=== PATIENT | female | born 1970 | race Caucasian/White ===

== ENCOUNTER → 2022-06-01 | Outpatient (CLI) | payer MEDICARE, OTHER ==
[2022-06-01 16:43] VITALS: BP 138/81; PULSE 76; TEMP 98.2; BMI 64.5
--- NOTE | 2022-06-01 17:14 | P.HPBAR ---
Bariatric H&P - History & Physicial H&P Date: 06/01/22 History & Physicial: Visit/CC: new patient Patient initial contact: Initial weight: Initial weight in pounds: Height: 5 ft 11 in Initial BMI: Last weight: Current weight: 209.696 kg Current weight in pounds: 462.30 Current BMI: 64.5 [place] body weight (based on NIH guidelines): 70.307 kg Excess body weight loss: The patient is a 51 year-old F who presents for Bariatric Assessment. Patient presents for sending consultation. Highest weight of 520 pounds. With medical supervised weight loss is primary care doctor he got down to 452 pounds. Today he comes a weight gain of 10 pounds to 40-62 pounds. Reports having bila teral knee replacement surgery 8 years ago. He also reports prior attempt for weight loss surgery in this [place] however discontinue due to the of her friend who had a gastric bypass. Patient comes in with a walker. He does report occasional gastroesophageal reflux disease. No prior abdominal surgeries. He has personal history of positive Colocort needs a colonoscopy. Recommend upper and lower endoscopy. Patient has just moved to the area has pre-existing cardiopulmonary disease. Referral to a film loader for shortness sleep apnea, CPAP machine and chronic obstructive pulmonary disease. Also referral to counseling services director is he reports having cardioversion. At present he does not have a counseling services director. Recommend psych assessment. At least 3 months of medical supervised weight loss pending. This is currently second month. All questions addressed. Patient is seeking a sleeve gastrectomy. Past Medical History Past Medical History: Atrial Fibrillation, Diabetes Mellitus, Hyperlipidemia, Hypertension, Osteoarthritis (OA) History of Any Multi-Drug Resistant Organisms: None Reported Past Surgical History: Cardiac Ablation, Joint Replacement Additional Past Surgical History / Comment(s): bilateral knee replacement, left shoulder surgery, left elbow surgery Past Anesthesia/Blood Transfusion Reactions: No Reported Reaction Past Psychological History: Anxiety Smoking Status: Vaper Past Alcohol Use History: Rare Past Drug Use History: None Reported Surgical - Exam Vital Signs Temp Pulse BP 98.2 F 76 138/81 06/01/22 16:38 06/01/22 16:38 06/01/22 16:38 Bariatric Checklist Checklist: Plan: Checklist: EGD: 1. Hiatal hernia: 2. H. Pylori: HgbA1c: Vitamin D: Smoking: Primary care physician referral: Dr. Jung Psychiatry clearance: Cardiology clearance: Sleep study: Diet journal: VTE risk score: VTE risk level: Rehab needs at discharge:
== END ==
LOC: BARWHC3 16:09
PROVIDERS: ATTEND Surgery Plastic and Reconstructive Surgery
DX: E66.01 Morbid (severe) obesity due to excess calories (principal); Z53.9 Procedure and treatment not carried out, unspecified reason
CPT/HCPCS: 99203

== ENCOUNTER → 2022-08-22 | Outpatient (CLI) | payer MEDICARE, OTHER ==
[2022-08-22 10:51] VITALS: BMI 66.3
== END ==
LOC: BARWHC3 08:45
PROVIDERS: ATTEND Surgery Plastic and Reconstructive Surgery
DX: E66.01 Morbid (severe) obesity due to excess calories (principal); Z71.3 Dietary counseling and surveillance; Z68.44 Body mass index [BMI] 60.0-69.9, adult
CPT/HCPCS: 97804

== ENCOUNTER 2022-09-19 06:43 | Day surgery (SDC) | payer MEDICARE, OTHER ==
[2022-09-14 14:57] VITALS: BMI 59.7
[2022-09-19] MEDS ORDERED: LACTATED RINGERS 1,000 ML IV ONE (07:37)
[2022-09-19 07:39] LABS: Glucose,Whole Blood 127 mg/dL (70-110)
[2022-09-19 07:41] VITALS: TEMP 97.3
--- NOTE | 2022-09-19 07:41 | P.GSHP ---
History of Present Illness H&P Date: 09/19/22 CHIEF COMPLAINT: GERD and colon screen HISTORY OF PRESENT ILLNESS: The patient is a 52-year-old male who presents with gastroesophageal reflux disease and need for colon screen. Upper and lower endoscopy were offered for further evaluation and management. PAST MEDICAL HISTORY: Please see list. PAST SURGICAL HISTORY: Please see list. MEDICATIONS: Please see list. ALLERGIES: Please see list. SOCIAL HISTORY: No illicit drug use FAMILY HISTORY: No reports of Crohn disease or ulcerative colitis. REVIEW OF ORGAN SYSTEMS: CONSTITUTIONAL: No reports of fevers or chills. GI: Denies any blood in stools or constipation. PHYSICAL EXAM: VITAL SIGNS: Stable GENERAL: Well-developed pleasant in no acute distress. HEENT: No scleral icterus. Extraocular movements grossly intact. Moist buccal mucosa. NECK: Supple without lymphadenopathy. CHEST: Unlabored respirations. Equal bilateral excursions. CARDIOVASCULAR: Regular rate and rhythm. Distal 2+ pulses. ABDOMEN: Soft, nondistended. MUSCULOSKELETAL: No clubbing, cyanosis, or edema. ASSESSMENT: 1. Gastroesophageal reflux disease 2. Colon screen. PLAN: 1. Recommend proceeding with an upper and lower endoscopy Past Medical History Past Medical History: Atrial Fibrillation, Diabetes Mellitus, GERD/Reflux, Hyperlipidemia, Hypertension, Osteoarthritis (OA), Skin Disorder, Sleep Apnea/CPAP/BIPAP Additional Past Medical History / Comment(s): Patient has a wound on Right heel for 3-4 years that won't heal. History of Any Multi-Drug Resistant Organisms: None Reported Past Surgical History: Cardiac Ablation, Joint Replacement, Tonsillectomy Additional Past Surgical History / Comment(s): bilateral knee replacement, left shoulder surgery, left elbow surgery Past Anesthesia/Blood Transfusion Reactions: No Reported Reaction Past Psychological History: Anxiety, Depression Smoking Status: Current every day smoker, Vaper Past Alcohol Use History: None Reported Past Drug Use History: None Reported Medications and Allergies Home Medications Medication Instructions Recorded Confirmed Type ALPRAZolam [Xanax] 1 mg PO BID PRN 06/01/22 09/14/22 History Atorvastatin [Lipitor] 40 mg PO DAILY 06/01/22 09/14/22 History Baclofen [Lioresal] 20 mg PO HS 06/01/22 09/14/22 History Enalapril [Vasotec] 20 mg PO DAILY 06/01/22 09/14/22 History Fenofibrate 160 mg PO DAILY 06/01/22 09/14/22 History Gabapentin 600 mg PO BID 06/01/22 09/14/22 History Rivaroxaban [Xarelto] 20 mg PO HS 06/01/22 09/14/22 History Sotalol HCl [Betapace] 120 mg PO BID 06/01/22 09/14/22 History Tirzepatide [Mounjaro] 12.5 mg SQ WEEKLY 06/01/22 09/14/22 History metFORMIN HCL [Glucophage] 1,000 mg PO BID 06/01/22 09/14/22 History Hydrocodone/Acetaminophen 1 mg PO BID 09/02/22 09/14/22 History [Hydrocodone/Acetaminophen 7.5-325] Glimepiride [Amaryl] 2 mg PO AC-BRKFST 09/14/22 09/14/22 History Insulin Glargine,Hum.rec.anlog 40 units SQ BID 09/14/22 09/14/22 History [Touadiel Solostar] Insulin Lispro [humaLOG Kwikpen] 0 unit SQ TID-W/MEALS 09/14/22 09/14/22 History Magnesium 400 mg PO DAILY 09/14/22 09/14/22 History Omeprazole 20 mg PO DAILY 09/14/22 09/14/22 History Sildenafil Citrate [Viagra] 25 mg PO DIRECTED PRN 09/14/22 09/14/22 History Turmeric Root Extract [Turmeric 500 mg PO DAILY 09/14/22 09/14/22 History Curcumin] Vitamin D3/Vitamin K2 (Mk4) 1 each PO DAILY 09/14/22 09/14/22 History [Vitamin K2 Plus D3 Tablet] Allergies Allergy/AdvReac Type Severity Reaction Status Date / Time morphine AdvReac ANXIOUS Verified 09/14/22 14:45 AND STRANGE FEELING Results - Labs Abnormal Lab Results - Last 24 Hours (Table) 09/19/22 Range/Units 07:35 POC Glucose (mg/dL) 127 H (70-110) mg/dL
[2022-09-19] MEDS ORDERED: LIDOCAINE 2% INJ 20 MG/ML (2 ML VIAL) ONE (07:42)
[2022-09-19] MEDS ORDERED: PROPOFOL 10 MG/ML 20 ML VIAL IV ONE (07:42)
--- NOTE | 2022-09-19 07:52 | P.PCN ---
Date of Procedure: 09/19/22 Description of Procedure: PREOPERATIVE DIAGNOSIS: Gastroesophageal reflux disease. Morbid obesity. POSTOPERATIVE DIAGNOSIS: Gastroesophageal reflux disease with erosive esophagitis Morbid obesity. Gastritis. Duodenal adenoma OPERATION: Esophagogastroduodenoscopy with biopsies along antrum and duodenum SURGEON: Jazz Briscoe MD ANESTHESIA: MAC. INDICATIONS: The patient is a 52-year-old male who presents with reflux disease. Benefits and risks of the procedure were described. Informed consent was obtained. DESCRIPTION: The patient was brought into the endoscopy suite and laid in the left lateral decubitus position. An Olympus gastroscope was passed along the posterior oropharynx down to the distal esophagus where the squamocolumnar junction was encountered at 4 cm from the incisors. The stomach was entered and no bile reflux was found. Additional findings are listed below. Biopsies with cold forceps were obtained of the antrum. The first through third portion of the duodenum was examined. Retroflexion of the scope confirmed Hill grade 2 lower esophageal valve. The squamocolumnar junction demonstrated LA grade B erosive esophagitis. The stomach was desufflated. The patient tolerated the procedure well. FINDINGS: Squamocolumnar junction 45 cm from the incisors. Diaphragmatic hiatus at 45 cm. Hill grade 2 lower esophageal valve. LA grade B erosive esophagitis. 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
--- NOTE | 2022-09-19 08:18 | P.PCN ---
Date of Procedure: 09/19/22 Description of Procedure: PREOPERATIVE DIAGNOSIS: Positive Cologuard Colonoscopy screening POSTOPERATIVE DIAGNOSIS: Tubular adenoma cecum Tubular adenoma ascending colon Tubular adenoma sigmoid colon OPERATION: Colonoscopy to the ileocecal valve and appendiceal orifice, cecum Colonoscopy with hot snare polypectomy SURGEON: Jazz Briscoe MD. ANESTHESIA: MAC. INDICATIONS: The patient is an 52-year-old male who presents with positive stool antigen test for adenoma. Benefits and risks were described and informed consent was obtained. DESCRIPTION OF PROCEDURE: The patient had undergone Sutab prep. The patient had been brought into the operating room and laid in the left lateral decubitus position. After adequate intravenous sedation, the rectum was examined with 2% lidocaine jelly. The prostate was unremarkable. No external hemorrhoids were encountered. The rectal tone was within normal limits. No lesions were palpated in the rectal vault. An Olympus colonoscope was advanced until the cecum, ileocecal valve and appendiceal orifice were clearly viewed. The prep was good. No sigmoid diverticulosis was encountered. Colonic polyps were found and removed. No evidence of focal colitis was found. Retroflexion of the scope demonstrated grade 1 internal hemorrhoids without active bleeding or inflammation. The colon was desufflated. The patient had tolerated the procedure well. Withdrawal time was over 6 minutes. FINDINGS: Aronchick preparation quality scale 2 (1-5) Internal hemorrhoids, grade 1 No external hemorrhoids Arteriovenous malformations, 1 mm, ascending colon No sigmoid diverticulosis Removal of 5 polyps: - Snare polypectomy 20 cm from the anal verge, 5 mm tubulovillous adenoma, sigmoid - Snare polypectomy 30 cm from the anal verge 2, 6 to 8 mm flat villous adenoma, sigmoid - Snare polypectomy ascending colon, 4 mm flat villous adenoma - Snare polypectomy cecum, 5 mm flat villous adenoma No focal colitis. RECOMMENDATIONS: Given severity of tubular adenomas, recommend repeat colonoscopy 3 years, 2025 Plan - Discharge Summary Discharge Rx Participant: No New Discharge Prescriptions: Continue ALPRAZolam [Xanax] 1 mg PO BID PRN PRN Reason: Anxiety Fenofibrate 160 mg PO DAILY Baclofen [Lioresal] 20 mg PO HS Atorvastatin [Lipitor] 40 mg PO DAILY metFORMIN HCL [Glucophage] 1,000 mg PO BID Sotalol HCl [Betapace] 120 mg PO BID Enalapril [Vasotec] 20 mg PO DAILY Tirzepatide [Mounjaro] 12.5 mg SQ WEEKLY Hydrocodone/Acetaminophen [Hydrocodone/Acetaminophen 7.5-325] 1 mg PO BID Insulin Glargine,Hum.rec.anlog [Tounancyo Solostar] 40 units SQ BID Glimepiride [Amaryl] 2 mg PO AC-BRKFST Turmeric Root Extract [Turmeric Curcumin] 500 mg PO DAILY Insulin Lispro [humaLOG Kwikpen] 0 unit SQ TID-W/MEALS Rivaroxaban [Xarelto] 20 mg PO HS Gabapentin 600 mg PO BID Sildenafil Citrate [Viagra] 25 mg PO DIRECTED PRN PRN Reason: ED Magnesium 400 mg PO DAILY Vitamin D3/Vitamin K2 (Mk4) [Vitamin K2 Plus D3 Tablet] 1 each PO DAILY Omeprazole 20 mg PO DAILY Discharge Medication List ALPRAZolam [Xanax] 1 mg PO BID PRN 06/01/22 [History] Atorvastatin [Lipitor] 40 mg PO DAILY 06/01/22 [History] Baclofen [Lioresal] 20 mg PO HS 06/01/22 [History] Enalapril [Vasotec] 20 mg PO DAILY 06/01/22 [History] Fenofibrate 160 mg PO DAILY 06/01/22 [History] Gabapentin 600 mg PO BID 06/01/22 [History] Rivaroxaban [Xarelto] 20 mg PO HS 06/01/22 [History] Sotalol HCl [Betapace] 120 mg PO BID 06/01/22 [History] Tirzepatide [Mounjaro] 12.5 mg SQ WEEKLY 06/01/22 [History] metFORMIN HCL [Glucophage] 1,000 mg PO BID 06/01/22 [History] Hydrocodone/Acetaminophen [Hydrocodone/Acetaminophen 7.5-325] 1 mg PO BID 09/02/22 [History] Glimepiride [Amaryl] 2 mg PO AC-BRKFST 09/14/22 [History] Insulin Glargine,Hum.rec.anlog [Toujeo Solostar] 40 units SQ BID 09/14/22 [History] Insulin Lispro [humaLOG Kwikpen] 0 unit SQ TID-W/MEALS 09/14/22 [History] Magnesium 400 mg PO DAILY 09/14/22 [History] Omeprazole 20 mg PO DAILY 09/14/22 [History] Sildenafil Citrate [Viagra] 25 mg PO DIRECTED PRN 09/14/22 [History] Turmeric Root Extract [Turmeric Curcumin] 500 mg PO DAILY 09/14/22 [History] Vitamin D3/Vitamin K2 (Mk4) [Vitamin K2 Plus D3 Tablet] 1 each PO DAILY 09/14/22 [History] [facility]Ref[facility] [facility] [place] [place] [place] Patient Instructions/Handouts: Colorectal Polyps (GEN) Activity/Diet/Wound Care/Special Instructions: Repeat colonoscopy 3 years, 2025 Discharge Disposition: HOME SELF-CARE
[2022-09-19 08:43] VITALS: BP 116/65; PULSE 80; RESP 20
== END 2022-09-19 09:08 | disposition home or self-care (01) ==
LOC: ORWHC2ENDO 06:43
PROVIDERS: ATTEND Surgery Plastic and Reconstructive Surgery
DX: Z12.11 Encounter for screening for malignant neoplasm of colon (principal); K29.50 Unspecified chronic gastritis without bleeding; D12.0 Benign neoplasm of cecum; D12.2 Benign neoplasm of ascending colon; K64.1 Second degree hemorrhoids; K21.00 Gastro-esophageal reflux disease with esophagitis, without bleeding; K31.7 Polyp of stomach and duodenum; E66.01 Morbid (severe) obesity due to excess calories; D13.2 Benign neoplasm of duodenum; I48.91 Unspecified atrial fibrillation; E11.9 Type 2 diabetes mellitus without complications; K21.9 Gastro-esophageal reflux disease without esophagitis; E78.5 Hyperlipidemia, unspecified; I10 Essential (primary) hypertension; F41.8 Other specified anxiety disorders; M19.90 Unspecified osteoarthritis, unspecified site; G47.33 Obstructive sleep apnea (adult) (pediatric); Z99.89 Dependence on other enabling machines and devices; Z90.89 Acquired absence of other organs; Z98.890 Other specified postprocedural states; F17.290 Nicotine dependence, other tobacco product, uncomplicated; Z79.84 Long term (current) use of oral hypoglycemic drugs; Z79.899 Other long term (current) drug therapy; Z79.4 Long term (current) use of insulin; Z88.5 Allergy status to narcotic agent
CPT/HCPCS: 88305; 45385; 43239; J2704; J2001

== ENCOUNTER → 2022-10-12 | Outpatient (CLI) | payer MEDICARE, OTHER ==
[2022-10-12 14:18] VITALS: BP 131/78; PULSE 83; RESP 13; TEMP 98; BMI 65.2
--- NOTE | 2022-10-12 15:24 | P.BASOAP ---
Subjective Progress Note Date: 10/12/22 He is pending cardiac clearance. He needs full blood work. Path reviewed. Needs food and exercise journal. Needs EKG. Objective - Vital Signs Vital signs: Vital Signs Temp 98 F 10/12/22 14:08 Pulse 83 10/12/22 14:08 Resp 13 10/12/22 14:08 BP 131/78 10/12/22 14:08 Pulse Ox FiO2 Intake & Output 10/11/22 10/12/22 10/12/22 18:59 06:59 18:59 Weight 212.372 kg Assessment/Plan Plan: Date: 10/12/22 Initial Weight: Initial BMI: Current Weight: 212.372 kg Current BMI: 65.2 Type of Surgery: Total Volume in Band: Previous Volume: Volume Removed: Volume Added: Band Size:
[2022-10-13 02:31] LABS: % Iron Saturation 10.81 (15.00-50.00); ALT 29 U/L (10-49); AST 24 U/L (14-35); Albumin/Globulin Ratio 1.25 Ratio (1.60-3.17); Alkaline Phosphatase 77 U/L (41-126); BUN/Creat Ratio 14.75 Ratio (12.00-20.00); Blood Urea Nitrogen 11.8 mg/dL (9.0-27.0); Carbon Dioxide 23.7 mmol/L (21.6-31.8); Chloride 100 mmol/L (96-109); Chol/HDL Ratio 4.81 Ratio; Globulin 3.2 d/dL (1.6-3.3); Glucose 191 mg/dL (70-110); Iron 48 UG/DL (65-175); LDL Cholesterol,Calculated 67.9 mg/dL (0.0-131.0); Magnesium 1.6 mg/dL (1.5-2.4); Phosphorus 3.4 mg/dL (2.4-5.1); Potassium 4.4 mmol/L (3.5-5.5); Sodium 137 mmol/L (135-145); Total Bilirubin 0.3 mg/dL (0.3-1.2); Total Iron Binding Capacity 444 UG/DL (228-460); Total Protein 7.2 d/dL (6.2-8.2)
[2022-10-13 02:52] LABS: Prealbumin 18.4 mg/dL (18.0-42.0)
[2022-10-13 03:53] LABS: Ferritin 62.5 ng/mL (22.0-322.0)
[2022-10-13 11:48] LABS: HCT 43.2 % (39.6-50.0); HGB 13.8 d/dL (12.0-15.0); MCH 29.9 pg (27.0-32.0); MCHC 31.9 d/dL (32.0-37.0); MCV 93.5 FL (80.0-97.0); Mean Platelet Volume 10.7 FL (9.5-12.2); NRBC Per 100 WBC 0.04 X 10*3/uL (0.00-0.01); Platelet Count 290 X 10*3/uL (140-440); RBC 4.62 X 10*6/uL (4.40-5.60); RDW 14.8 % (11.5-14.5); WBC 11.72 X 10*3/uL (4.50-10.00)
[2022-10-14 06:32] LABS: Vit B1(Thiamine) 70 ug/L (38-122)
[2022-10-14 08:05] LABS: Vitamin A 46 ug/dL (38-106)
== END ==
LOC: BARWHC3 14:00
PROVIDERS: ATTEND Surgery Plastic and Reconstructive Surgery
DX: E66.01 Morbid (severe) obesity due to excess calories (principal); Z68.44 Body mass index [BMI] 60.0-69.9, adult; E89.1 Postprocedural hypoinsulinemia; D50.8 Other iron deficiency anemias; D50.9 Iron deficiency anemia, unspecified; E44.0 Moderate protein-calorie malnutrition; E44.1 Mild protein-calorie malnutrition; E45 Retarded development following protein-calorie malnutrition; E46 Unspecified protein-calorie malnutrition; E55.9 Vitamin D deficiency, unspecified; N19 Unspecified kidney failure; T56.894A Toxic effect of other metals, undetermined, initial encounter; Z88.5 Allergy status to narcotic agent; Z79.4 Long term (current) use of insulin; Z79.84 Long term (current) use of oral hypoglycemic drugs
CPT/HCPCS: 84255; 84134; 84425; 80061; 80053; 82607; 82728; 82525; 82746; 83540; 83550; 83735; 84100; 84443; 84590; 84630; 85027; 85610; 85730; 82306; 83970; 83036; G0463; 99211

== ENCOUNTER → 2022-12-14 | Outpatient (CLI) | payer MEDICARE, OTHER ==
[2022-12-14 09:15] VITALS: BP 129/79; PULSE 86; TEMP 98.2; BMI 63.1
--- NOTE | 2022-12-14 09:40 | P.BASOAP ---
Subjective Progress Note Date: 12/14/22 Patient has completed cardiac risk assessment. He is on blood thinner. Additionally, his loss 15 pounds for his presurgical weight loss. With gastrectomy and sent reviewed. WelChol high-protein diet reemphasized. Emphasis on walking to prevent blood clots described including adequate hydration reviewed. Anticipated inpatient hospitalization I agrees described. All questions addressed. Objective - Vital Signs Vital signs: Vital Signs Temp 98.2 F 12/14/22 09:11 Pulse 86 12/14/22 09:11 Resp BP 129/79 12/14/22 09:11 Pulse Ox FiO2 Intake & Output 12/13/22 12/14/22 12/14/22 18:59 06:59 18:59 Weight 205.477 kg Assessment/Plan Plan: Date: 12/14/22 Initial Weight: Initial BMI: Current Weight: 205.477 kg Current BMI: 63.1 Type of Surgery: Total Volume in Band: Previous Volume: Volume Removed: Volume Added: Band Size:
== END ==
LOC: BARWHC3 08:58
PROVIDERS: ATTEND Surgery Plastic and Reconstructive Surgery
DX: Z53.9 Procedure and treatment not carried out, unspecified reason (principal)
CPT/HCPCS: 99211

== ENCOUNTER → 2022-12-14 | Outpatient (CLI) | payer MEDICARE, OTHER ==
[2022-12-14 17:11] LABS: ALT 35 U/L (10-49); AST 33 U/L (14-35); Albumin 4.3 d/dL (3.8-4.9); Albumin/Globulin Ratio 1.34 Ratio (1.60-3.17); Alkaline Phosphatase 75 U/L (41-126); BUN/Creat Ratio 13.22 Ratio (12.00-20.00); Blood Urea Nitrogen 11.9 mg/dL (9.0-27.0); Calcium 10.2 mg/dL (8.7-10.3); Carbon Dioxide 23.8 mmol/L (21.6-31.8); Chloride 102 mmol/L (96-109); Globulin 3.2 d/dL (1.6-3.3); Glucose 110 mg/dL (70-110); Potassium 4.4 mmol/L (3.5-5.5); Sodium 139 mmol/L (135-145); Total Bilirubin 0.5 mg/dL (0.3-1.2); Total Protein 7.5 d/dL (6.2-8.2)
[2022-12-14 17:14] LABS: Basophils # (A) 0.08 X 10*3/uL (0.00-0.10); Basophils % (A) 0.6 %; Eosinophils # (A) 0.26 X 10*3/uL (0.04-0.35); Eosinophils % (A) 2.1 %; HCT 44.6 % (39.6-50.0); HGB 14.5 d/dL (13.0-17.0); Lymphocytes # (A) 4.33 X 10*3/uL (0.90-5.00); Lymphocytes % (A) 34.8 %; MCH 29.4 pg (27.0-32.0); MCHC 32.5 d/dL (32.0-37.0); MCV 90.5 FL (80.0-97.0); Mean Platelet Volume 10.3 FL (9.5-12.2); Monocytes # (A) 0.95 X 10*3/uL (0.20-1.00); Monocytes % (A) 7.6 %; NRBC Per 100 WBC 0 X 10*3/uL (0.00-0.01); Neutrophils # (A) 6.81 X 10*3/uL (1.80-7.70); Neutrophils % (A) 54.7 %; Platelet Count 293 X 10*3/uL (140-440); RBC 4.93 X 10*6/uL (4.40-5.60); RDW 14.6 % (11.5-14.5); WBC 12.46 X 10*3/uL (4.50-10.00)
== END | disposition home or self-care (01) ==
LOC: LABWHC1 09:35
PROVIDERS: ATTEND Surgery Plastic and Reconstructive Surgery
DX: Z01.812 Encounter for preprocedural laboratory examination (principal)
CPT/HCPCS: 36415; 80053; 85025

== ENCOUNTER 2022-12-19 15:30 | Inpatient (IN) | payer MEDICARE, OTHER ==
--- NOTE | 2022-12-19 08:51 | P.GSHP ---
History of Present Illness H&P Date: 12/19/22 CHIEF COMPLAINT: Morbid obesity HISTORY OF PRESENT ILLNESS: Harpreet Kumar is a 52-year-old male who comes with lifelong morbid obesity. As result of morbid obesity, he has developed diabetes type 2, hypertensive heart disease, obstructive sleep apnea, hyperlipidemia, osteoarthritis of the hips and knees. He has completed medical supervised weight loss. He completed medical including cardiac assessment. He has completed psychological risk assessment. All surgical options were reviewed. He elected for sleeve gastrectomy. At height of 6 feet 2 inches, ideal body weight is 193 pounds. He comes in 467 pounds. His body mass index is 60.1. He is 274 pounds overweight. PAST MEDICAL HISTORY: 1. Morbid obesity due to excess calories 2. Body mass index of 60.1 3. Osteoarthritis of the knees. 4. Osteoarthritis of the lower back. 5. Hypertensive heart disease. 6. Gastroesophageal reflux disease 7. Hyperlipidemia 8. Obstructive sleep apnea 9. Diabetes type 2, insulin-dependent 10. Fatty liver disease 11. Chronic pain syndrome 12. Coronary artery disease 13. Atrial fibrillation PAST SURGICAL HISTORY: 1. Cardiac ablation 2. Bilateral knee replacement 3. Left shoulder surgery 4. Left elbow surgery 5. Colonoscopy 6. Upper endoscopy HOME MEDICATIONS: Home Medications Medication Instructions Recorded Confirmed ALPRAZolam [Xanax] 1 mg PO BID PRN 06/01/22 12/14/22 Atorvastatin [Lipitor] 40 mg PO DAILY 06/01/22 12/14/22 Baclofen [Lioresal] 20 mg PO BID 06/01/22 12/14/22 Enalapril [Vasotec] 20 mg PO DAILY 06/01/22 12/14/22 Fenofibrate 160 mg PO DAILY 06/01/22 12/14/22 Gabapentin 600 mg PO BID 06/01/22 12/14/22 Rivaroxaban [Xarelto] 20 mg PO HS 06/01/22 12/14/22 Sotalol HCl [Betapace] 120 mg PO BID 06/01/22 12/14/22 Tirzepatide [Mounjaro] 12.5 mg SQ WEEKLY 06/01/22 12/14/22 metFORMIN HCL [Glucophage] 1,000 mg PO BID 06/01/22 12/14/22 Hydrocodone/Acetaminophen 1 mg PO BID 09/02/22 12/14/22 [Hydrocodone/Acetaminophen 7.5-325] Glimepiride [Amaryl] 2 mg PO AC-BRKFST 09/14/22 12/14/22 Insulin Glargine,Hum.rec.anlog 40 units SQ BID 09/14/22 12/14/22 [Touadiel Greeneosteden] Insulin Lispro [humaLOG Kwikpen] 0 unit SQ TID-W/MEALS 09/14/22 12/14/22 Magnesium 400 mg PO DAILY 09/14/22 12/14/22 Omeprazole 20 mg PO DAILY 09/14/22 12/14/22 Sildenafil Citrate [Viagra] 25 mg PO DIRECTED PRN 09/14/22 12/14/22 Turmeric Root Extract [Turmeric 500 mg PO DAILY 09/14/22 12/14/22 Curcumin] Vitamin D3/Vitamin K2 (Mk4) 1 each PO DAILY 09/14/22 12/14/22 [Vitamin K2 Plus D3 Tablet] Ergocalciferol [Vitamin D2 (1250 50,000 unit PO WEEKLY 10/17/22 12/14/22 Mcg = 14702 Iu)] Multivit/Iron Sulf/Folic Acid 1 tab PO DAILY 10/17/22 12/14/22 [Multivitamin with Iron] ALLERGIES: Allergies Allergy/AdvReac Type Severity Reaction Status Date / Time morphine AdvReac ANXIOUS Verified 10/12/22 14:08 AND STRANGE FEELING SOCIAL HISTORY: Past tobacco use. FAMILY HISTORY: No family history of ulcerative colitis disease or Crohn's disease. Family history of morbid obesity. No lupus in the family. No reports of stomach or esophageal cancer. REVIEW OF ORGAN SYSTEMS: CONSTITUTIONAL: At height of 6 feet 2 inches, ideal body weight is 193 pounds. He comes in 467 pounds. His body mass index is 60.1. He is 274 pounds overweight. HEENT: Denies any active troubles with vision or hearing. ENDOCRINE: Has diabetes. Denies hypothyroidism. CARDIOVASCULAR: Past reports of palpitations or heart attacks or chest pain. Has atrial fibrillation. Has coronary artery disease. RESPIRATORY: Has daytime somnolence. GASTROINTESTINAL: Denies any bright red blood per rectum. Has gastroesophageal reflux disease. MUSCULOSKELETAL: Has lower back pain and joint pain. Has osteoarthritis of the knees. NEURO: No headaches. No seizure disorders. PSYCH: Ni depression. No suicidal ideation. RHEUMATOLOGIC: No lupus. No rheumatoid arthritis. HEMATOLOGIC: On chronic blood thinner No personal history of DVTs. SKIN: Has rash. No skin cancer. PHYSICAL EXAM: VITAL SIGNS: Height 6 foot 2 inches, weight 467 pounds. BMI 60.1 GENERAL: Well-developed in no acute distress. HEENT: No scleral icterus. Extraocular movements grossly intact. Hears conve rsational speech. No nasal drainage. NECK: Supple without lymphadenopathy. CHEST: Nonlabored respirations with equal bilateral excursions. CARDIOVASCULAR: Regular rate and regular rhythm. Distal 2+ pulses. ABDOMEN: Obese, soft, nontender, nondistended. MUSCULOSKELETAL: No clubbing, cyanosis. NEURO: No focal or lateralizing signs. Cranial nerves 2 through 12 grossly within normal limits. PSYCH: Appropriate affect. Alert and oriented to person, place and time. SKIN: Good skin turgor. Well perfused. ASSESSMENT: 1. Morbid obesity due to excess calories 2. Body mass index of 60.1 3. Osteoarthritis of the knees. 4. Osteoarthritis of the lower back. 5. Hypertensive heart disease. 6. Gastroesophageal reflux disease 7. Hyperlipidemia 8. Obstructive sleep apnea 9. Diabetes type 2, insulin-dependent 10. Fatty liver disease 11. Chronic pain syndrome 12. Coronary artery disease 13. Atrial fibrillati PLAN: 1. Bariatric options between a sleeve, band and a Jackie-en-Y gastric bypass were reviewed in detail. The patient elected for a sleeve gastrectomy. Robotic assisted approach described. 2. The [place] [facility] Data was also reviewed with benefits and risks as described. 3. An 8 page second-generation bariatric consent form was reviewed in detail including potential of bleeding, infection, leaks, adequate weight loss, nutritional deficiencies which the patient demonstrated understanding of the risks. 4. A 2 week high-protein low caloric 800 kcal diet described to address hepatomegaly. 5. Preoperative labs including complete metabolic panel and CBC with type and screen recommended. 6. DVT prophylaxis per [place] [facility]. 7. Antibiotic prophylaxis. 8. Inpatient hospitalization anticipated for more than 2 nights. 9. All questions and concerns were addressed with the patient. 10. The patient is at elevated risk for perioperative complications with sleep apnea and hypertensive heart disease. 11. Overall, patient has expressed understanding of bariatric care including postoperative diet and commitment of lifestyle. Patient should benefit from surgical intervention for correction of morbid obesity. 12. He is elevated risk due to pre-existing comorbid conditions Past Medical History Past Medical History: Atrial Fibrillation, Diabetes Mellitus, GERD/Reflux, Hyp erlipidemia, Hypertension, Osteoarthritis (OA), Skin Disorder, Sleep Apnea/CPAP/BIPAP Additional Past Medical History / Comment(s): Patient has a wound on Right heel for 3-4 years that has finally healed overl. uses cpap History of Any Multi-Drug Resistant Organisms: None Reported Past Surgical History: Cardiac Ablation, Joint Replacement, Tonsillectomy Additional Past Surgical History / Comment(s): bilateral knee replacement, left shoulder surgery, left elbow surgery Past Anesthesia/Blood Transfusion Reactions: No Reported Reaction Smoking Status: Former smoker, Vaper - Past Family History Mother Family Medical History: Cancer Additional Family Medical History / Comment(s): bladder Medications and Allergies Home Medications Medication Instructions Recorded Confirmed Type ALPRAZolam [Xanax] 1 mg PO BID PRN 06/01/22 12/14/22 History Atorvastatin [Lipitor] 40 mg PO DAILY 06/01/22 12/14/22 History Baclofen [Lioresal] 20 mg PO BID 06/01/22 12/14/22 History Enalapril [Vasotec] 20 mg PO DAILY 06/01/22 12/14/22 History Fenofibrate 160 mg PO DAILY 06/01/22 12/14/22 History Gabapentin 600 mg PO BID 06/01/22 12/14/22 History Rivaroxaban [Xarelto] 20 mg PO HS 06/01/22 12/14/22 History Sotalol HCl [Betapace] 120 mg PO BID 06/01/22 12/14/22 History Tirzepatide [Mounjaro] 12.5 mg SQ WEEKLY 06/01/22 12/14/22 History metFORMIN HCL [Glucophage] 1,000 mg PO BID 06/01/22 12/14/22 History Hydrocodone/Acetaminophen 1 mg PO BID 09/02/22 12/14/22 History [Hydrocodone/Acetaminophen 7.5-325] Glimepiride [Amaryl] 2 mg PO AC-BRKFST 09/14/22 12/14/22 History Insulin Glargine,Hum.rec.anlog 40 units SQ BID 09/14/22 12/14/22 History [Toujemisty Abernathy] Insulin Lispro [humaLOG Kwikpen] 0 unit SQ TID-W/MEALS 09/14/22 12/14/22 History Magnesium 400 mg PO DAILY 09/14/22 12/14/22 History Omeprazole 20 mg PO DAILY 09/14/22 12/14/22 History Sildenafil Citrate [Viagra] 25 mg PO DIRECTED PRN 09/14/22 12/14/22 History Turmeric Root Extract [Turmeric 500 mg PO DAILY 09/14/22 12/14/22 History Curcumin] Vitamin D3/Vitamin K2 (Mk4) 1 each PO DAILY 09/14/22 12/14/22 History [Vitamin K2 Plus D3 Tablet] Ergocalciferol [Vitamin D2 (1250 50,000 unit PO WEEKLY 10/17/22 12/14/22 History Mcg = 62692 Iu)] Multivit/Iron Sulf/Folic Acid 1 tab PO DAILY 10/17/22 12/14/22 History [Multivitamin with Iron] Allergies Allergy/AdvReac Type Severity Reaction Status Date / Time morphine AdvReac ANXIOUS Verified 10/12/22 14:08 AND STRANGE FEELING
[~2022-12-19 15:30] MED LIST: ACETAMINOPHEN TAB 500 MG TAB PO PRN; ALVIMOPAN 12 MG CAPSULE PO PRN; CHLORHEXIDINE GLUCONATE 15 ML CUP MUCOUS MEM PRN; DEXAMETHASONE SOD PHOSPHATE 4 MG/ML 1 ML VIAL IV ONE; ENOXAPARIN 40 MG/0.4 ML SYRINGE SQ PRN; HYDROmorphone 0.5 MG/0.5 ML SYRINGE IVP PRN; LIDOCAINE 1% (10MG/ML) FOR IV START INTRADERMA PRN; ONDANSETRON 4 MG/2 ML VIAL IVP ONE; ONDANSETRON 4 MG/2 ML VIAL IVP PRN; PANTOPRAZOLE 40 MG/10 ML VIAL IVP PRN; ceFAZolin 3 GM in SODIUM CHLORIDE 0.9% 100 ML IVPB PRN; droPERidol 5 MG/2 ML VIAL IVP PRN
[2022-12-19] MEDS: LACTATED RINGERS 1,000 ML IV SCH (15:56)
[2022-12-19 16:23] LABS: Glucose,Whole Blood 121 mg/dL (70-110)
[2022-12-19 16:37] LABS: Basophils # (A) 0.1 k/uL (0-0.2); Basophils % (A) 1 %; Eosinophils # (A) 0.3 k/uL (0-0.7); Eosinophils % (A) 2 %; HCT 42.8 % (39.0-53.0); HGB 14.2 gm/dL (13.0-17.5); Lymphocytes # (A) 3.7 k/uL (1.0-4.8); Lymphocytes % (A) 26 %; MCH 29.9 pg (25.0-35.0); MCHC 33.2 g/dL (31.0-37.0); Mean Platelet Volume 7.8; Monocytes % (A) 7 %; Neutrophils # (A) 8.5 k/uL (1.3-7.7); Neutrophils % (A) 62 %; Platelet Count 287 k/uL (150-450); RBC 4.75 m/uL (4.30-5.90); RDW 14.8 % (11.5-15.5); WBC 13.9 k/uL (3.8-10.6)
[2022-12-19] MEDS ORDERED: fentaNYL (PF) 50 MCG/ML 2 ML AMP ONE (17:17)
[2022-12-19] MEDS ORDERED: LIDOCAINE 2% INJ 20 MG/ML (2 ML VIAL) ONE (17:17)
[2022-12-19] MEDS ORDERED: NEOSTIGMINE 1 MG/ML 10 ML VIAL ONE (17:17)
[2022-12-19] MEDS ORDERED: SUCCINYLCHOLINE CHLORIDE 200 MG/10 ML VIAL IV ONE (17:17)
[2022-12-19] MEDS ORDERED: PROPOFOL 10 MG/ML 20 ML VIAL IV ONE (17:17)
[2022-12-19] MEDS ORDERED: ROCURONIUM 10 MG/ML (5 ML VIAL) IV ONE (17:17)
[2022-12-19] MEDS ORDERED: MIDAZOLAM 2 MG/2 ML VIAL ONE (17:17)
[2022-12-19] MEDS ORDERED: GLYCOPYRROLATE 0.2 MG/ML 2 ML VIAL ONE (17:17)
[2022-12-19] MEDS ORDERED: LIDOCAINE 1%-EPI 1:100,000 50 ML VIAL SQ ONE (17:44)
[2022-12-19] MEDS ORDERED: LACTATED RINGERS 1,000 ML IV ONE (18:29)
[2022-12-19] MEDS ORDERED: HYDROmorphone 1 MG/ML 1 ML SYRINGE IVP PRN (19:11)
[2022-12-19] MEDS ORDERED: NALOXONE 0.4 MG/ML 1 ML VIAL IV PRN (19:11)
[2022-12-19] MEDS ORDERED: diphenhydrAMINE 50 MG/ML 1 ML VIAL IVP PRN (19:11)
[2022-12-19] MEDS ORDERED: ALPRAZolam 1 MG TAB PO PRN (19:15)
[2022-12-19] MEDS ORDERED: DEXTROSE 50% SYRINGE 50 ML IVP PRN ×2 (19:21)
[2022-12-19 20:52] LABS: Glucose,Whole Blood 189 mg/dL (70-110)
[2022-12-19] MEDS: ALBUTEROL NEBULIZED 2.5 MG/3 ML INHALATION SCH (21:01)
[2022-12-19] MEDS: BACLOFEN 10 MG TAB PO SCH (21:12)
[2022-12-19] MEDS: HYDROcodone/APAP 7.5-325MG 1 EACH TAB PO SCH (21:12)
[2022-12-19] MEDS: GABAPENTIN 300 MG CAP PO SCH (21:12)
[2022-12-19] MEDS: PANTOPRAZOLE 40 MG/10 ML VIAL IV SCH (21:13)
[2022-12-19] MEDS: INSULIN ASPART (NovoLOG) 100 UNIT/ML VIAL SQ SCH (21:13)
[2022-12-19] MEDS: SOTALOL 120 MG TAB PO SCH (23:17)
[2022-12-19] MEDS: 0.9% NACL WITH KCL 20 MEQ/L 1,000 ML IV SCH (23:20)
[2022-12-20] MEDS ORDERED: ceFAZolin 3 GM in SODIUM CHLORIDE 0.9% 100 ML IVPB SCH ×2
[2022-12-20] MEDS: ACETAMINOPHEN IV (For NPO) 1,000 MG in EMPTY BAG 1 BAG IVPB SCH ×6 (00:04→22:38)
[2022-12-20] MEDS: SIMETHICONE 80 MG CHEWABLE PO SCH ×4 (01:13→17:26)
[2022-12-20 06:24] LABS: Glucose,Whole Blood 166 mg/dL (70-110)
[2022-12-20] MEDS: INSULIN ASPART (NovoLOG) 100 UNIT/ML VIAL SQ SCH ×4 (07:32→21:28)
[2022-12-20] MEDS: 0.9% NACL WITH KCL 20 MEQ/L 1,000 ML IV SCH ×4 (07:50→22:36)
[2022-12-20] MEDS: LACTATED RINGERS 1,000 ML IV SCH ×2 (07:51→22:36)
[2022-12-20] MEDS: lisinopriL 20 MG TAB PO SCH (08:37)
[2022-12-20] MEDS: PANTOPRAZOLE 40 MG/10 ML VIAL IV SCH ×2 (08:37→21:29)
[2022-12-20] MEDS: ENOXAPARIN 40 MG/0.4 ML SYRINGE SQ SCH (08:38)
[2022-12-20] MEDS: BACLOFEN 10 MG TAB PO SCH ×2 (08:38→21:40)
[2022-12-20] MEDS: GABAPENTIN 300 MG CAP PO SCH ×2 (08:38→21:42)
[2022-12-20] MEDS: SOTALOL 120 MG TAB PO SCH ×2 (08:38→22:30)
[2022-12-20] MEDS: HYDROcodone/APAP 7.5-325MG 1 EACH TAB PO SCH ×2 (08:38→21:42)
[2022-12-20 09:11] LABS: Blood Urea Nitrogen 11.4 mg/dL (9.0-27.0); Calcium 9.1 mg/dL (8.7-10.3); Carbon Dioxide 21.9 mmol/L (21.6-31.8); Chloride 101 mmol/L (96-109); Magnesium 1.7 mg/dL (1.5-2.4); Phosphorus 3.1 mg/dL (2.4-5.1); Potassium 4.3 mmol/L (3.5-5.5); Sodium 137 mmol/L (135-145)
[2022-12-20] MEDS: ALBUTEROL NEBULIZED 2.5 MG/3 ML INHALATION SCH ×4 (09:15→21:11)
[2022-12-20 09:22] LABS: HCT 41.1 % (39.6-50.0); MCH 29.2 pg (27.0-32.0); MCHC 31.6 d/dL (32.0-37.0); MCV 92.4 FL (80.0-97.0); NRBC Per 100 WBC 0 X 10*3/uL (0.00-0.01); Platelet Count 261 X 10*3/uL (140-440); RBC 4.45 X 10*6/uL (4.40-5.60); RDW 14.4 % (11.5-14.5); WBC 14.99 X 10*3/uL (4.50-10.00)
[2022-12-20 09:23] LABS: Basophils # (A) 0.03 X 10*3/uL (0.00-0.10); Basophils % (A) 0.2 %; Eosinophils # (A) 0 X 10*3/uL (0.04-0.35); Eosinophils % (A) 0 %; Lymphocytes # (A) 2.18 X 10*3/uL (0.90-5.00); Lymphocytes % (A) 14.5 %; Monocytes # (A) 0.51 X 10*3/uL (0.20-1.00); Monocytes % (A) 3.4 %; Neutrophils # (A) 12.17 X 10*3/uL (1.80-7.70); Neutrophils % (A) 81.2 %
--- NOTE | 2022-12-20 11:02 | FL ---
EXAMINATION TYPE: FL UGI DATE OF EXAM: 12/20/2022 COMPARISON: INDICATION: Patient age:Male; 52 years old; Reason for study: Post Op Bariatric Surgery; [facility]. COMPARISON: None TECHNIQUE: The procedure was explained and patient history elicited. All patient questions were ans wered prior to start of procedure. Difficult examination due to patient's inability to stand upright within the fluoroscopic machine or able to lie supine on the fluoroscopic table due to pain. The crhistiano ent ingested Isovue orally with subsequent radiographs taken. Radiographs taken: 4 FINDINGS: Limited examination due to patient's body habitus with underpenetration. Contrast passes easily throu gh the esophagus into the stomach. Post surgical changes from gastric sleeve. No evidence for obstruc tion or leak. Contrast easily passes into the proximal duodenum. IMPRESSION: Technically difficult examination due to patient condition with inability to stand upright or get on the fluoroscopic table due to size and pain. No gross evidence for leak or obstruction on the acquire d radiographs.
[2022-12-20 11:53] LABS: Glucose,Whole Blood 153 mg/dL (70-110)
[2022-12-20] MEDS ORDERED: SODIUM CHLORIDE 0.9% 2,000 ML IV ONE (12:59)
[2022-12-20 13:55] VITALS: BMI 59.5
--- NOTE | 2022-12-20 15:10 | P.CONS ---
History of Present Illness - Reason for Consult Consult date: 12/20/22 Medical management - History of Present Illness History of present illness; patient is a 52-year-old gentleman past medical history significant for diabetes mellitus, hypertension, sleep apnea, hyperlipi demia, osteoarthritis who presented to the hospital for elective sleeve gastrectomy. Patient has been following up outpatient with surgery, patient was on supervised medical weight loss program but was unable to lose enough weight. Patient was scheduled for elective sleeve gastrectomy on 12/19. Medicine team was consulted for medical management REVIEW OF SYSTEMS: CONSTITUTIONAL: No fever, no malaise, no fatigue. HEENT: No recent visual problems or hearing problems. Denied any sore throat. CARDIOVASCULAR: No chest pain, orthopnea, PND, no palpitations, no syncope. PULMONARY: No shortness of breath, no cough, no hemoptysis. GASTROINTESTINAL: No diarrhea, no nausea, no vomiting, complaining of abdominal pain NEUROLOGICAL: No headaches, no weakness, no numbness. HEMATOLOGICAL: Denies any bleeding or petechiae. GENITOURINARY: Denies any burning micturition, frequency, or urgency. MUSCULOSKELETAL/RHEUMATOLOGICAL: Denies any joint pain, swelling, or any muscle pain. ENDOCRINE: Denies any polyuria or polydipsia. The rest of the 14-point review of systems is negative. PHYSICAL EXAMINATION: GENERAL: The patient is alert and oriented x3, not in any acute distress. Well developed, well nourished. HEENT: Pupils are round and equally reacting to light. EOMI. No scleral icterus. No conjunctival pallor. Normocephalic, atraumatic. No pharyngeal erythema. No thyromegaly. CARDIOVASCULAR: S1 and S2 present. No murmurs, rubs, or gallops. PULMONARY: Chest is clear to auscultation, no wheezing or crackles. ABDOMEN: Soft, nontender, nondistended, normoactive bowel sounds. No palpable organomegaly. MUSCULOSKELETAL: No joint swelling or deformity. EXTREMITIES: No cyanosis, clubbing, or pedal edema. NEUROLOGICAL: Gross neurological examination did not reveal any focal deficits. SKIN: No rashes. Assessment and plan Morbid obesity status post sleeve gastrectomy Body mass index of 60.1 Osteoarthritis of the knees. Osteoarthritis of the lower back. Hypertensive heart disease. Gastroesophageal reflux disease Hyperlipidemia Obstructive sleep apnea Diabetes type 2, insulin-dependent Fatty liver disease Atrial fibrillation Monitor vital signs Monitor CBC Monitor CMP Continue antiemetics Continue IV fluids Continue pain management Resume home meds Labs and medication were reviewed.. Continue same treatment. Continue with symptomatic treatment. Resume home medication. Monitor labs and vitals. DVT and GI prophylaxis. Further recommendations as per clinical course of the patient Dictation was produced using [employer] dictation software. please excuse any grammatical, word or spelling errors. Past Medical History Past Medical History: Atrial Fibrillation, Diabetes Mellitus, GERD/Reflux, Hyperlipidemia, Hypertension, Osteoarthritis (OA), Skin Disorder, Sleep Apnea/CPAP/BIPAP Additional Past Medical History / Comment(s): Patient has a wound on Right heel for 3-4 years that has finally healed overl. uses cpap History of Any Multi-Drug Resistant Organisms: None Reported Past Surgical History: Cardiac Ablation, Joint Replacement, Tonsillectomy Additional Past Surgical History / Comment(s): bilateral knee replacement, left shoulder surgery, left elbow surgery Past Anesthesia/Blood Transfusion Reactions: No Reported Reaction Past Psychological History: Anxiety Smoking Status: Former smoker, Vaper Past Alcohol Use History: None Reported Past Drug Use History: None Reported - Past Family History Mother Family Medical History: Cancer Additional Family Medical History / Comment(s): bladder Medications and Allergies Home Medications Medication Instructions Recorded Confirmed Type ALPRAZolam [Xanax] 1 mg PO BID PRN 06/01/22 12/19/22 History Atorvastatin [Lipitor] 40 mg PO DAILY 06/01/22 12/19/22 History Baclofen [Lioresal] 20 mg PO BID 06/01/22 12/14/22 History Enalapril [Vasotec] 20 mg PO DAILY 06/01/22 12/19/22 History Fenofibrate 160 mg PO DAILY 06/01/22 12/19/22 History Gabapentin 600 mg PO BID 06/01/22 12/14/22 History Sotalol HCl [Betapace] 120 mg PO BID 06/01/22 12/14/22 History metFORMIN HCL [Glucophage] 1,000 mg PO BID 06/01/22 12/19/22 History Hydrocodone/Acetaminophen 1 mg PO BID 09/02/22 12/19/22 History [Hydrocodone/Acetaminophen 7.5-325] Magnesium 400 mg PO DAILY 09/14/22 12/19/22 History Sildenafil Citrate [Viagra] 25 mg PO DIRECTED PRN 09/14/22 12/19/22 History Acetaminophen Tab [Tylenol Tab] 1,000 mg PO Q6HR PRN #30 tablet 12/19/22 Rx Omeprazole [PriLOSEC] 40 mg PO DAILY #30 cap 12/19/22 Rx Ondansetron Odt [Zofran Odt] 4 mg PO Q8HR PRN #9 tab 12/19/22 Rx Simethicone 40 mg/0.6 ml Drops 40 mg PO PCHS PRN #30 ml 12/19/22 Rx [Mylicon Drops] bisacodyL [Dulcolax] 5 mg PO DAILY PRN #10 tab 12/19/22 Rx Allergies Allergy/AdvReac Type Severity Reaction Status Date / Time No Known Allergies Allergy Verified 12/19/22 15:49 Physical Exam Vitals: Vital Signs Temp Pulse Resp BP Pulse Ox FiO2 12/20/22 09:14 96 12/20/22 09:13 96 21 12/20/22 07:56 82 20 147/90 96 12/20/22 02:00 98 F 81 123/76 100 12/19/22 22:45 89 141/86 96 12/19/22 22:30 90 131/80 97 12/19/22 22:15 84 129/78 97 12/19/22 22:00 83 142/83 97 12/19/22 21:45 89 133/79 97 12/19/22 21:30 84 139/80 95 12/19/22 21:15 84 145/83 97 12/19/22 21:00 87 144/85 94 L 12/19/22 20:45 84 142/85 96 12/19/22 20:30 98.3 F 79 16 140/86 96 12/19/22 20:06 75 16 168/82 98 12/19/22 19:51 71 16 165/78 97 12/19/22 19:36 74 16 140/71 93 L 12/19/22 19:21 81 18 152/74 93 L 12/19/22 19:06 91 16 166/69 93 L 12/19/22 16:10 97.3 F L 77 16 134/60 98 Intake and Output 12/20/22 12/20/22 12/20/22 06:59 14:59 22:59 Output Total 390 Balance -390 Output: Urine 390 Other: Voiding Method Urinal # Voids 0 1 Weight 210.2 kg 210.2 kg Results CBC & Chem 7: 12/20/22 04:35 12/20/22 04:35 Labs: Abnormal Lab Results - Last 24 Hours (Table) 12/19/22 12/19/22 12/19/22 Range/Units 16:20 16:23 20:50 WBC 13.9 H (3.8-10.6) k/uL MCHC (32.0-37.0) d/dL Neutrophils # 8.5 H (1.3-7.7) k/uL Eosinophils # (0.04-0.35) X 10*3/uL Anion Gap (4.00-12.00) mmol/L POC Glucose (mg/dL) 121 H 189 H (70-110) mg/dL Hemoglobin A1c (<=6.0) % 12/20/22 12/20/22 12/20/22 Range/Units 04:35 04:35 04:35 WBC 14.99 H (3.8-10.6) k/uL MCHC 31.6 L (32.0-37.0) d/dL Neutrophils # 12.17 H (1.3-7.7) k/uL Eosinophils # 0 L (0.04-0.35) X 10*3/uL Anion Gap 14.10 H (4.00-12.00) mmol/L POC Glucose (mg/dL) (70-110) mg/dL Hemoglobin A1c 7.3 H (<=6.0) % 12/20/22 12/20/22 Range/Units 06:22 11:51 WBC (3.8-10.6) k/uL MCHC (32.0-37.0) d/dL Neutrophils # (1.3-7.7) k/uL Eosinophils # (0.04-0.35) X 10*3/uL Anion Gap (4.00-12.00) mmol/L POC Glucose (mg/dL) 166 H 153 H (70-110) mg/dL Hemoglobin A1c (<=6.0) %
[2022-12-20 17:01] LABS: Glucose,Whole Blood 125 mg/dL (70-110)
[2022-12-20] MEDS: ONDANSETRON ODT 4 MG TAB PO PRN (18:06)
[2022-12-20 20:22] VITALS: RESP 17
[2022-12-20 20:49] LABS: Glucose,Whole Blood 135 mg/dL (70-110)
[2022-12-21] MEDS: SIMETHICONE 80 MG CHEWABLE PO SCH ×4 (00:43→19:20)
[2022-12-21 06:07] LABS: Glucose,Whole Blood 139 mg/dL (70-110)
[2022-12-21] MEDS: INSULIN ASPART (NovoLOG) 100 UNIT/ML VIAL SQ SCH ×3 (06:09→19:20)
[2022-12-21] MEDS: ONDANSETRON ODT 4 MG TAB PO PRN (06:16)
[2022-12-21 07:56] VITALS: BP 129/81; PULSE 69; TEMP 97.7
[2022-12-21] MEDS: ALBUTEROL NEBULIZED 2.5 MG/3 ML INHALATION SCH ×3 (07:58→15:07)
[2022-12-21] MEDS ORDERED: bisacodyL 5 MG TABLET.DR PO PRN (08:00)
--- NOTE | 2022-12-21 08:18 | P.PN ---
Subjective Progress Note Date: 12/20/22 CHIEF COMPLAINT: Morbid obesity HISTORY OF PRESENT ILLNESS: The patient is a 52-year-old male status post sleeve gastrectomy for morbid obesity. He is tolerating ice chips popsicles. Pain tolerable. ROS: No reports of nausea and vomiting. No bowel movements. No fevers or chills. No new chest pain. No productive sputum PHYSICAL EXAM: VITAL SIGNS: Reviewed CONSTITUTIONAL: Well developed and in no acute distress. EYES: Conjuctivae without sclera icterus. Extraocular movements grossly intact. HEAD, EARS, NOSE, THROAT: Moist buccal mucosa. Head is atraumatic, normocephalic. Hears conversational speech. No nasal drainage. RESPIRATORY: Non-labored respirations and equal bilateral excursions. CARDIOVASCULAR: Palpable 2+ radial pulses. ABDOMEN: Incision is intact. MUSCULOSKELETAL: No gross deformity of the lower extremities noted. No clubbing. No cyanosis. SKIN: Good skin turgor. Well perfused. NEUROLOGIC: Cranial nerves II through XII grossly intact. No focal or lateraliz ing signs. PSYCH: Appropriate affect. Alert and oriented to person, place and time. CLINICAL LABS: Reviewed. WBC appropriately elevated, post stress response. Hemoglobin 13.0. STUDIES: Esophagram independent review demonstrates no leak or obstruction. This is my independent interpretation. ASSESSMENT: 1. Morbid obesity due to excess calories, BMI 59.5 2. Dehydration PLAN: 1. He is voiding spontaneously and tolerating diet. 2. Recommend IV fluid bolus 2 L for pre-existing dehydration 3. Discharge after IV fluid bolus 4. Bariatric diet reviewed Objective - Vital Signs Vital signs: Vital Signs Temp 97.7 F 12/21/22 07:29 Pulse 69 12/21/22 07:29 Resp 17 12/21/22 07:29 BP 129/81 12/21/22 07:29 Pulse Ox 96 12/21/22 07:29 FiO2 21 12/20/22 09:13 Intake & Output 12/20/22 12/21/22 12/21/22 18:59 06:59 18:59 Intake Total 720 Balance 720 Weight 210.2 kg Intake: Oral 720 Other: Voiding Method Urinal # Voids 3 1 - Labs CBC & Chem 7: 12/20/22 04:35 12/20/22 04:35 Labs: Abnormal Lab Results - Last 24 Hours (Table) 08/12/20/22 12/20/22 Range/Units 04:35 04:35 04:35 WBC 14.99 H (4.50-10.00) X 10*3/uL MCHC 31.6 L (32.0-37.0) d/dL Neutrophils # 12.17 H (1.80-7.70) X 10*3/uL Eosinophils # 0 L (0.04-0.35) X 10*3/uL Anion Gap 14.10 H (4.00-12.00) mmol/L POC Glucose (mg/dL) (70-110) mg/dL Hemoglobin A1c 7.3 H (<=6.0) % 12/20/22 12/20/22 12/20/22 Range/Units 11:51 17:00 20:47 WBC (4.50-10.00) X 10*3/uL MCHC (32.0-37.0) d/dL Neutrophils # (1.80-7.70) X 10*3/uL Eosinophils # (0.04-0.35) X 10*3/uL Anion Gap (4.00-12.00) mmol/L POC Glucose (mg/dL) 153 H 125 H 135 H (70-110) mg/dL Hemoglobin A1c (<=6.0) % 12/21/22 Range/Units 06:05 WBC (4.50-10.00) X 10*3/uL MCHC (32.0-37.0) d/dL Neutrophils # (1.80-7.70) X 10*3/uL Eosinophils # (0.04-0.35) X 10*3/uL Anion Gap (4.00-12.00) mmol/L POC Glucose (mg/dL) 139 H (70-110) mg/dL Hemoglobin A1c (<=6.0) %
[2022-12-21] MEDS: HYDROcodone/APAP 7.5-325MG 1 EACH TAB PO SCH (08:19)
[2022-12-21] MEDS: GABAPENTIN 300 MG CAP PO SCH (08:19)
[2022-12-21] MEDS: BACLOFEN 10 MG TAB PO SCH (08:19)
[2022-12-21] MEDS: lisinopriL 20 MG TAB PO SCH (08:19)
[2022-12-21] MEDS: SOTALOL 120 MG TAB PO SCH (08:19)
[2022-12-21] MEDS: PANTOPRAZOLE 40 MG/10 ML VIAL IV SCH (08:19)
[2022-12-21] MEDS: ENOXAPARIN 40 MG/0.4 ML SYRINGE SQ SCH (08:19)
[2022-12-21 11:35] LABS: Glucose,Whole Blood 148 mg/dL (70-110)
[2022-12-21 12:08] LABS: Basophils % (A) 0 %; Eosinophils # (A) 0.1 k/uL (0-0.7); Eosinophils % (A) 1 %; HCT 40.3 % (39.0-53.0); HGB 13.4 gm/dL (13.0-17.5); Lymphocytes # (A) 3.2 k/uL (1.0-4.8); Lymphocytes % (A) 24 %; MCH 30.3 pg (25.0-35.0); MCHC 33.4 g/dL (31.0-37.0); MCV 90.7 fL (80.0-100.0); Mean Platelet Volume 7.8; Monocytes # (A) 0.9 k/uL (0-1.0); Monocytes % (A) 7 %; Neutrophils # (A) 8.8 k/uL (1.3-7.7); Neutrophils % (A) 66 %; Platelet Count 213 k/uL (150-450); RBC 4.44 m/uL (4.30-5.90); WBC 13.3 k/uL (3.8-10.6)
[2022-12-21] MEDS: ACETAMINOPHEN IV (For NPO) 1,000 MG in EMPTY BAG 1 BAG IVPB SCH ×2 (12:31→15:49)
[2022-12-21 12:38] LABS: ALT 26 U/L (4-49); AST 28 U/L (17-59); African American GFR (CKD) >90 (>60 ml/min/1.73 sqM); Albumin 3.7 g/dL (3.5-5.0); Albumin/Globulin Ratio 1.2; Alkaline Phosphatase 57 U/L (38-126); Anion Gap 8 mmol/L; Blood Urea Nitrogen 8 mg/dL (9-20); Calcium 8.9 mg/dL (8.4-10.2); Carbon Dioxide 23 mmol/L (22-30); Chloride 105 mmol/L (98-107); Globulin 3.1 g/dL; Glucose 143 mg/dL (74-99); Non-African American GFR(CKD) >90 (>60 ml/min/1.73 sqM); Potassium 4.1 mmol/L (3.5-5.1); Sodium 136 mmol/L (137-145); Total Bilirubin 0.6 mg/dL (0.2-1.3); Total Protein 6.8 g/dL (6.3-8.2)
--- NOTE | 2022-12-21 13:37 | P.PN ---
Subjective Progress Note Date: 12/21/22 patient is a 52-year-old gentleman past medical history significant for diabetes mellitus, hypertension, sleep apnea, hyperlipidemia, osteoarthritis who presented to the hospital for elective sleeve gastrectomy. Patient has been following up outpatient with surgery, patient was on supervised medical weight loss program but was unable to lose enough weight. Patient was scheduled for elective sleeve gastrectomy on 12/19. Medicine team was consulted for medical management 816. Patient seen and examined. States he feels better compared to yesterday. Tolerating diet REVIEW OF SYSTEMS: CONSTITUTIONAL: No fever, no malaise,. CARDIOVASCULAR: No chest pain, no palpitations, no syncope. PULMONARY: No shortness of breath, no cough, GASTROINTESTINAL: No diarrhea, no nausea, no vomiting, no abdominal pain. NEUROLOGICAL: No headaches, no weakness, PHYSICAL EXAMINATION: GENERAL: The patient is alert and oriented x3, not in any acute distress. Well developed, well nourished. HEENT: Pupils are round and equally reacting to light. EOMI. No scleral icterus. No conjunctival pallor. Normocephalic, atraumatic. No pharyngeal erythema. No thyromegaly. CARDIOVASCULAR: S1 and S2 present. No murmurs, rubs, or gallops. PULMONARY: Chest is clear to auscultation, no wheezing or crackles. ABDOMEN: Soft, nontender, nondistended, laparoscopic surgical incision seen MUSCULOSKELETAL: No joint swelling or deformity. EXTREMITIES: No cyanosis, clubbing, or pedal edema. NEUROLOGICAL: Gross neurological examination did not reveal any focal deficits. SKIN: No rashes. Assessment and plan Morbid obesity status post sleeve gastrectomy Body mass index of 60.1 Osteoarthritis of the knees. Osteoarthritis of the lower back. Hypertensive heart disease. Gastroesophageal reflux disease Hyperlipidemia Obstructive sleep apnea Diabetes type 2, insulin-dependent Fatty liver disease Atrial fibrillation Monitor vital signs Monitor CBC Monitor CMP Continue pain management per surgery Advance diet per surgery Continue symptomatic treatment Labs and medication were reviewed.. Continue same treatment. Continue with symptomatic treatment. Resume home medication. Monitor labs and vitals. DVT and GI prophylaxis. Further recommendations as per clinical course of the patient Dictation was produced using [employer] dictation software. please excuse any grammatical, word or spelling errors. Objective - Vital Signs Vital signs: Vital Signs Temp 97.7 F 12/21/22 07:29 Pulse 69 12/21/22 07:29 Resp 17 12/21/22 07:29 BP 129/81 12/21/22 07:29 Pulse Ox 96 12/21/22 07:29 FiO2 21 12/20/22 09:13 Intake & Output 12/20/22 12/21/22 12/21/22 18:59 06:59 18:59 Intake Total 720 Balance 720 Weight 210.2 kg Intake: Oral 720 Other: Voiding Method Urinal # Voids 3 1 - Labs CBC & Chem 7: 12/21/22 11:45 12/21/22 11:45 Labs: Abnormal Lab Results - Last 24 Hours (Table) 12/20/22 12/20/22 12/21/22 Range/Units 17:00 20:47 06:05 WBC (3.8-10.6) k/uL Neutrophils # (1.3-7.7) k/uL Sodium (137-145) mmol/L BUN (9-20) mg/dL Glucose (74-99) mg/dL POC Glucose (mg/dL) 125 H 135 H 139 H (70-110) mg/dL 12/21/22 12/21/22 12/21/22 Range/Units 11:33 11:45 11:45 WBC 13.3 H (3.8-10.6) k/uL Neutrophils # 8.8 H (1.3-7.7) k/uL Sodium 136 L (137-145) mmol/L BUN 8 L (9-20) mg/dL Glucose 143 H (74-99) mg/dL POC Glucose (mg/dL) 148 H (70-110) mg/dL
[2022-12-21] MEDS: 0.9% NACL WITH KCL 20 MEQ/L 1,000 ML IV SCH (15:49)
[2022-12-21 17:21] LABS: Glucose,Whole Blood 125 mg/dL (70-110)
--- NOTE | 2023-01-16 21:29 | P.OP ---
Date of Procedure: 12/19/22 Description of Procedure: SURGEON: SHAQUILLE KHAN MD PREOPERATIVE DIAGNOSES: 1. Morbid obesity due to excess calories 2. Body mass index of 66.3 3. Diabetes type 2, [id number] 4. Hypertensive heart disease 5. Hyperlipidemia 6. Chronic pain syndrome 7. Generalized anxiety disorder 8. Diabetic neuropathy 9. Osteoarthritis lower back 10. Osteoarthritis bilateral knees 11. Obstructive sleep apnea 12. Atrial fibrillation 13. Chronic anticoagulation POSTOPERATIVE DIAGNOSES: 1. Morbid obesity due to excess calories 2. Body mass index of 66.3 3. Diabetes type 2, [id number] 4. Hypertensive heart disease 5. Hyperlipidemia 6. Chronic pain syndrome 7. Generalized anxiety disorder 8. Diabetic neuropathy 9. Osteoarthritis lower back 10. Osteoarthritis bilateral knees 11. Obstructive sleep apnea 12. Atrial fibrillation 13. Chronic anticoagulation 14. Fatty liver disease with hepatomegaly OPERATION: 1. Robotic assisted daVinci Xi laparoscopic sleeve gastrectomy with 40-Georgian bougie, multiport. 2. Intraoperative esophagogastroduodenoscopy. ANESTHESIA: Gen. local anesthetic ESTIMATED BLOOD LOSS: 5 mL SPECIMENS REMOVED: Sleeve gastrectomy COMPLICATIONS: None. FINDINGS: 1. Negative intraoperative esophagogastrojejunoscopy leak test. 2. No large hiatus hernia. 3. Total of 8 staplers used including 60 mm black and green obot david used to create the gastric sleeve. 4. Sleeve gastrectomy 39 x 6 cm INDICATIONS: Harpreet Kumar is a 52-year-old male who comes with morbid obesity. He has completed bariatric risk assessment including dietary surveillance and counseling, medical risk assessment and psychological assessment. At height of 5 feet 11 inches, ideal body weight is 178 pounds. His highest weight is 474 pounds, BMI 66.3. Today, he comes in weighing 462 pounds. All surgical options for morbid obesity had been described using the [place] bariatric surgery collaborative comorbidity resolution including complication risk score. A second-generation bariatric consent form was described in detail including the possibility of protein malnutrition, leaks, gastric stricture, venous thrombosis, gastroesophageal reflux disease, need for further surgery for which he demonstrated understanding. Benefits and risks of the procedure were described at length. Informed consent was obtained. DESCRIPTION: The patient was brought into the operating room theater. Preoperatively he had received Lovenox subcutaneously for DVT prophylaxis. Additionally he had Peridex oral solution as an oral decontaminant. After general induction, the abdomen was prepped and draped in standard sterile fashion. An Ioban draping was placed along the abdomen. No hensley catheter was placed. A robotic da Grace Xi system was prepped and primed. At 15 cm from the xiphoid, proposed port sites were marked with indelible marker along the anterior axillary line bilaterally, mid axillary line bilaterally with each ports were marked 10 to 15 cm from each other. The life enrichment assistant port was marked along the left lateral abdominal wall. The robotic stapler port was marked for the right midclavicular line. A 5 mm 0 degrees laparoscopic trocar entry was performed along the left upper quadrant. The abdomen was insufflated to 15 mmHg pressure he tolerated well. Diagnostic laparoscopy demonstrated no injury to bowel, viscera, or mesentery. The liver surface was remarkable for fatty liver disease. No injury had occurred to the small bowel or viscera. Along the hiatus no recurrent hiatal hernia was found. A 8 mm port was placed along the right upper abdominal wall after exchanging the 5 mm port. A separate 8 mm port was placed along the left lateral abdominal wall. Please note that the ports were placed at least 20 cm away from the target anatomy. Care was taken to check each robotic arms were safely away from j carlos ion with the bed or the patient. At the epigastrium, a medium sized Gege liver retractor was placed under direct visualization with the Iron Business Controller placed under the right shoulder of the patient. Next, 12-mm robot stapler port was placed along the right upper quadrant. The camera 8-mm port was maintained along the epigastrium. The patient was repositioned in reverse Trendelenburg position at 21-degrees after lowering the bed. The robot was docked along the left side of the patient. Using a grasper for arm 4, a veseel sealer for arm 3, including grasper for arm 1, the robotic system was docked and primed as described. Instruments were interchanged by the life enrichment assistant for stapler loads. The camera was placed at 30-degrees down. I had sat at the console. The pylorus was identified and 6 cm proximally along the greater curvature of the stomach, the short gastrics were mobilized upwards to the angle of His using a vessel sealer. Hemostasis was excellent during this portion of the procedure. Next, the upper pole of the stomach was adherent to the left jose, which was gently dissected free using atraumatic grasper. The nursing citrix engineer placed a 40-Georgian blunted tip bougie into the stomach. Robotic stapler black and green loads 60 mm x 8 were used to create the sleeve. Initial firing was across the antrum of the stomach towards the angle of His. The staple line was completely hemostatic and linear without corkscrewing. Hemostasis was excellent. The space from the angularis incisura of the sleeve was approximately 4 cm. I then went to the head of the bed to perform the intraoperative esophagogastroduodenoscopy leak test. The upper pole of the stomach was bathed using normal saline solution. The scope was withdrawn with careful inspection along the staple line for which no leaks were found along the entire length. Additionally, the sleeve was completely hemostatic without any encroachment along the angularis incisura. Its topology was a soft "J". No stricture was encountered upon placement of the scope. The GI tract was desufflated. The patient tolerated this portion of the procedure well. The scope was completely withdrawn. The robot was undocked. I then rescrubbed into case, whereby the irrigation fluid was aspirated from the abdominal cavity. Tisseel fibrin sealant was placed along the staple length. Once dried the Gege liver retractor was removed. Attention was now brought to removal of the specimen. The distal end of the sleeve gastrectomy specimen was brought out through the 12 mm port at the left upper quadrant. The specimen was gently removed en total, corresponding to 39 cm x 6 cm sleeve gastrectomy specimen. No contamination had occurred during this process. All instruments and pneumoperitoneum including irrigation fluid was removed from the abdominal cavity. The 12 mm port site was irrigated with warm normal saline solution and diluted hydron peroxide. The 12-mm port site was reapproximated using 0 Vicryl and Harish-Zeenat of the left upper quadrant. The final incisions were closed using subcuticular interrupted suture of 4-0 Monocryl. Dermabond was applied to the skin once the skin had been cleansed. OptiFoam dressing was placed along the stomach extraction site. At the end of the procedure, needle, sponge, and instrument count was verified correct by the crown and bridge dental lab technician. The patient was taken to the postanesthesia care unit in stable condition. He had tolerated the procedure well. Intraoperative films and findings were reviewed with the patient's family.
--- NOTE | 2023-01-16 21:33 | P.DS ---
Providers Date of admission: 12/19/22 15:36 Expected date of discharge: 12/21/22 Attending physician: Jazz Briscoe Consults: 12/19/22 19:22 Consult Physician Routine Consulting Provider: Kory Salcido Consult Reason/Comments: Medical management Do you want consulting provider notified?: Yes Primary care physician: Randal Arzola Hospital Course: POSTOPERATIVE DIAGNOSES: 1. Morbid obesity due to excess calories 2. Body mass index of 66.3 3. Diabetes type 2, [id number] 4. Hypertensive heart disease 5. Hyperlipidemia 6. Chronic pain syndrome 7. Generalized anxiety disorder 8. Diabetic neuropathy 9. Osteoarthritis lower back 10. Osteoarthritis bilateral knees 11. Obstructive sleep apnea 12. Atrial fibrillation 13. Chronic anticoagulation 14. Fatty liver disease with hepatomegaly 15. Dehydration CHIEF COMPLAINT: Morbid obesity HISTORY OF PRESENT ILLNESS: The patient is a 52-year-old male status post sleeve gastrectomy for morbid obesity. He is tolerating liquids. He overnight due to transient abdominal pain. He feels well today. ROS: No reports of nausea and vomiting. No bowel movements. No fevers or chills. No new chest pain. No productive sputum PHYSICAL EXAM: VITAL SIGNS: Reviewed CONSTITUTIONAL: Well developed and in no acute distress. EYES: Conjuctivae without sclera icterus. Extraocular movements grossly intact. HEAD, EARS, NOSE, THROAT: Moist buccal mucosa. Head is atraumatic, normocephalic. Hears conversational speech. No nasal drainage. RESPIRATORY: Non-labored respirations and equal bilateral excursions. CARDIOVASCULAR: Palpable 2+ radial pulses. ABDOMEN: Incision is intact. MUSCULOSKELETAL: No gross deformity of the lower extremities noted. No clubbing. No cyanosis. SKIN: Good skin turgor. Well perfused. NEUROLOGIC: Cranial nerves II through XII grossly intact. No focal or lateralizing signs. PSYCH: Appropriate affect. Alert and oriented to person, place and time. CLINICAL LABS: Reviewed. WBC trending down 14.9-13.3 ASSESSMENT: 1. Morbid obesity due to excess calories, BMI 59.5 2. Dehydration PLAN: 1. Dietary guidelines post bariatric reviewed 2. Medicine reconciliation performed 3. Stable for discharge for follow-up bariatric Center 48-72 hours Procedures: OPERATION: 1. Robotic assisted daVinci Xi laparoscopic sleeve gastrectomy with 40-Congolese bougie, multiport. 2. Intraoperative esophagogastroduodenoscopy. ANESTHESIA: Gen. local anesthetic ESTIMATED BLOOD LOSS: 5 mL SPECIMENS REMOVED: Sleeve gastrectomy COMPLICATIONS: None. FINDINGS: 1. Negative intraoperative esophagogastrojejunoscopy leak test. 2. No large hiatus hernia. 3. Total of 8 staplers used including 60 mm black and green obot david used t o create the gastric sleeve. 4. Sleeve gastrectomy 39 x 6 cm Patient Condition at Discharge: Stable Plan - Discharge Summary Discharge Rx Participant: No New Discharge Prescriptions: New bisacodyL [Dulcolax] 5 mg PO DAILY PRN #10 tab PRN Reason: Constipation Acetaminophen Tab [Tylenol Tab] 1,000 mg PO Q6HR PRN #30 tablet PRN Reason: Pain Ondansetron Odt [Zofran Odt] 4 mg PO Q8HR PRN #9 tab PRN Reason: Nausea Simethicone 40 mg/0.6 ml Drops [Mylicon Drops] 40 mg PO PCHS PRN #30 ml PRN Reason: Gas Omeprazole [PriLOSEC] 40 mg PO DAILY #30 cap Continue ALPRAZolam [Xanax] 1 mg PO BID PRN PRN Reason: Anxiety Fenofibrate 160 mg PO DAILY Baclofen [Lioresal] 20 mg PO BID Atorvastatin [Lipitor] 40 mg PO DAILY metFORMIN HCL [Glucophage] 1,000 mg PO BID Sotalol HCl [Betapace] 120 mg PO BID Enalapril [Vasotec] 20 mg PO DAILY Hydrocodone/Acetaminophen [Hydrocodone/Acetaminophen 7.5-325] 1 mg PO BID Gabapentin 600 mg PO BID Sildenafil Citrate [Viagra] 25 mg PO DIRECTED PRN PRN Reason: ED Magnesium 400 mg PO DAILY Discontinued Tirzepatide [Mounjaro] 12.5 mg SQ WEEKLY Insulin Glargine,Hum.rec.anlog [Toujeo Solostar] 40 units SQ BID Glimepiride [Amaryl] 2 mg PO AC-BRKFST Turmeric Root Extract [Turmeric Curcumin] 500 mg PO DAILY Insulin Lispro [humaLOG Kwikpen] 0 unit SQ TID-W/MEALS Ergocalciferol [Vitamin D2 (1250 Mcg = 49257 Iu)] 50,000 unit PO WEEKLY Multivit/Iron Sulf/Folic Acid [Multivitamin with Iron] 1 tab PO DAILY Rivaroxaban [Xarelto] 20 mg PO HS Vitamin D3/Vitamin K2 (Mk4) [Vitamin K2 Plus D3 Tablet] 1 each PO DAILY Omeprazole 20 mg PO DAILY Discharge Medication List ALPRAZolam [Xanax] 1 mg PO BID PRN 06/01/22 [History] Atorvastatin [Lipitor] 40 mg PO DAILY 06/01/22 [History] Baclofen [Lioresal] 20 mg PO BID 06/01/22 [History] Enalapril [Vasotec] 20 mg PO DAILY 06/01/22 [History] Fenofibrate 160 mg PO DAILY 06/01/22 [History] Gabapentin 600 mg PO BID 06/01/22 [History] Sotalol HCl [Betapace] 120 mg PO BID 06/01/22 [History] metFORMIN HCL [Glucophage] 1,000 mg PO BID 06/01/22 [History] Hydrocodone/Acetaminophen [Hydrocodone/Acetaminophen 7.5-325] 1 mg PO BID 09/02/22 [History] Magnesium 400 mg PO DAILY 09/14/22 [History] Sildenafil Citrate [Viagra] 25 mg PO DIRECTED PRN 09/14/22 [History] Acetaminophen Tab [Tylenol Tab] 1,000 mg PO Q6HR PRN #30 tablet 12/19/22 [Rx] Omeprazole [PriLOSEC] 40 mg PO DAILY #30 cap 12/19/22 [Rx] Ondansetron Odt [Zofran Odt] 4 mg PO Q8HR PRN #9 tab 12/19/22 [Rx] Simethicone 40 mg/0.6 ml Drops [Mylicon Drops] 40 mg PO PCHS PRN #30 ml 12/19/22 [Rx] bisacodyL [Dulcolax] 5 mg PO DAILY PRN #10 tab 12/19/22 [Rx] Follow up [facility]ment(s[facility]Ref[place] [facility] [place] [place] [facility] [place]23[facility]22 9:00 am Patient Instructions/Handouts: Nutrition after Bariatric Surgery (DC), Laparoscopic Sleeve Gastrectomy (DC) Activity/Diet/Wound Care/Special Instructions: DO NOT START BLOOD THINNERS UNTIL CLEARED BY SURGEON Liquid diet only for 2 weeks until Jan 02 May Shower. No soaking in bath tubs 2 weeks until Jan 02 Continue to use incentive spirometry to prevent pneumonias. Please continue to ambulate at home to prevent blood clots in legs. Please notify your surgeon if you develop nausea and vomiting including new onset of abdominal pain. No lifting over 4 pounds in 4 weeks, Jan 19 Drink 64 oz of fluid daily. Start protein shakes on . Notify bariatric center for temp over 101.0, increased pain, drainage from incisions. No straws or carbonated beverages. Liquid diet only. Sugar content should be less than 6 g to avoid dumping syndrome. Take MOM for constipation. CRUSH, OPEN, OR CUT TABLETS LARGER THAN A SIZE OF A TIC TAC Discharge Disposition: HOME SELF-CARE
== END 2022-12-21 18:30 | disposition home or self-care (01) | DRG 621 ==
LOC: EDSTATUS 15:30 → 2ORMAIN 15:36 → 4SSUR 19:48
PROVIDERS: ADMIT Surgery Plastic and Reconstructive Surgery; ATTEND Surgery Plastic and Reconstructive Surgery
PROC: 0DJ08ZZ Inspection of Upper Intestinal Tract, Via Natural or Artificial Opening Endoscopic (ICD-10-PCS; principal; 2022-12-19 16:15)
PROC: 0DB64Z3 Excision of Stomach, Percutaneous Endoscopic Approach, Vertical (ICD-10-PCS; principal; 2022-12-19 16:15)
PROC: 8E0W4CZ Robotic Assisted Procedure of Trunk Region, Percutaneous Endoscopic Approach (ICD-10-PCS; principal; 2022-12-19 16:15)
DX: E66.01 Morbid (severe) obesity due to excess calories (principal); Z28.310 Unvaccinated for COVID-19; Z68.44 Body mass index [BMI] 60.0-69.9, adult; M17.0 Bilateral primary osteoarthritis of knee; I11.9 Hypertensive heart disease without heart failure; K21.9 Gastro-esophageal reflux disease without esophagitis; E78.5 Hyperlipidemia, unspecified; G47.33 Obstructive sleep apnea (adult) (pediatric); M47.816 Spondylosis without myelopathy or radiculopathy, lumbar region; K76.0 Fatty (change of) liver, not elsewhere classified; E11.40 Type 2 diabetes mellitus with diabetic neuropathy, unspecified; G89.4 Chronic pain syndrome; E86.0 Dehydration; F41.1 Generalized anxiety disorder; I25.10 Atherosclerotic heart disease of native coronary artery without angina pectoris; M16.0 Bilateral primary osteoarthritis of hip; I48.91 Unspecified atrial fibrillation; Z96.653 Presence of artificial knee joint, bilateral; Z79.4 Long term (current) use of insulin; Z79.899 Other long term (current) drug therapy; Z79.01 Long term (current) use of anticoagulants; Z79.84 Long term (current) use of oral hypoglycemic drugs; Z87.891 Personal history of nicotine dependence
CPT/HCPCS: 74240; 80051; 80053; 82310; 82565; 83036; 83735; 84100; 84520; 85025; 86850; 86900; 86901; 88307; 94760

== ENCOUNTER → 2022-12-23 | Outpatient (CLI) | payer MEDICARE, OTHER ==
--- NOTE | 2022-12-23 10:12 | P.BASOAP ---
Subjective Progress Note Date: 12/23/22 The patient is status post sleeve gastrectomy. He is doing well. Continue off blood thinners. Increase protein intake 100 g daily due to height. Follow-up next week. Wound care instructions antibacterial soap and hydroperoxide reviewed. No infection. Additional abdominal binder order Objective - Vital Signs Vital signs: Intake & Output 12/22/22 12/23/22 12/23/22 18:59 06:59 18:59 Weight 209.106 kg Assessment/Plan Plan: Date: Initial Weight: Initial BMI: Current Weight: 209.106 kg Current BMI: Type of Surgery: Total Volume in Band: Previous Volume: Volume Removed: Volume Added: Band Size:
[2022-12-23 11:09] VITALS: BP 146/75; PULSE 77; RESP 13; TEMP 97.8; BMI 64.3
== END ==
LOC: BARWHC3 09:03
PROVIDERS: ATTEND Surgery Plastic and Reconstructive Surgery
DX: Z53.9 Procedure and treatment not carried out, unspecified reason (principal)
CPT/HCPCS: 99211

== ENCOUNTER → 2022-12-28 | Outpatient (CLI) | payer MEDICARE, OTHER ==
[2022-12-28 15:40] VITALS: BP 133/76; PULSE 75; TEMP 97.9; BMI 62.0
== END ==
LOC: BARWHC3 14:33
PROVIDERS: ATTEND Surgery Plastic and Reconstructive Surgery
DX: Z53.9 Procedure and treatment not carried out, unspecified reason (principal)
CPT/HCPCS: 97803; G0463; 99211

== ENCOUNTER → 2023-01-18 | Outpatient (CLI) | payer MEDICARE, OTHER ==
[2023-01-18 14:03] VITALS: BP 115/75; PULSE 65; TEMP 98.2; BMI 60.7
[2023-01-18 16:03] LABS: INR 1.2 (<1.2); Partial Thromboplastin Time 28.5 sec (22.0-30.0); Prothrombin Time 11.9 sec (9.0-12.0)
[2023-01-18 21:44] LABS: HCT 44.2 % (39.6-50.0); HGB 14.1 d/dL (13.0-17.0); MCH 29.6 pg (27.0-32.0); MCHC 31.9 d/dL (32.0-37.0); MCV 92.9 FL (80.0-97.0); Mean Platelet Volume 10.5 FL (9.5-12.2); NRBC Per 100 WBC 0 X 10*3/uL (0.00-0.01); Platelet Count 281 X 10*3/uL (140-440); RBC 4.76 X 10*6/uL (4.40-5.60); RDW 14.6 % (11.5-14.5); WBC 11.31 X 10*3/uL (4.50-10.00)
[2023-01-18 23:25] LABS: % Iron Saturation 22.96 (15.00-50.00); ALT 39 U/L (10-49); AST 38 U/L (14-35); Albumin 4.3 d/dL (3.8-4.9); Albumin/Globulin Ratio 1.54 Ratio (1.60-3.17); Alkaline Phosphatase 71 U/L (41-126); BUN/Creat Ratio 11.78 Ratio (12.00-20.00); Blood Urea Nitrogen 10.6 mg/dL (9.0-27.0); Calcium 9.8 mg/dL (8.7-10.3); Carbon Dioxide 21.4 mmol/L (21.6-31.8); Chloride 104 mmol/L (96-109); Chol/HDL Ratio 4.39 Ratio; Globulin 2.8 d/dL (1.6-3.3); Glucose 106 mg/dL (70-110); Iron 87 UG/DL (65-175); LDL Cholesterol,Calculated 75.4 mg/dL (0.0-131.0); Magnesium 1.8 mg/dL (1.5-2.4); Phosphorus 2.8 mg/dL (2.4-5.1); Potassium 4.4 mmol/L (3.5-5.5); Sodium 139 mmol/L (135-145); Total Bilirubin 0.6 mg/dL (0.3-1.2); Total Iron Binding Capacity 379 UG/DL (228-460); Total Protein 7.1 d/dL (6.2-8.2)
[2023-01-18 23:56] LABS: Prealbumin 17.5 mg/dL (18.0-42.0)
[2023-01-19 10:51] LABS: Zinc, Serum 61 ug/dL (60-130)
[2023-01-23 15:07] LABS: Vitamin A 42 ug/dL (38-106)
[2023-01-29 08:02] LABS: Selenium 111 mcg/L (63-160)
== END ==
LOC: BARWHC3 13:39
PROVIDERS: ATTEND Surgery Plastic and Reconstructive Surgery
DX: E66.01 Morbid (severe) obesity due to excess calories (principal); D50.8 Other iron deficiency anemias; D50.9 Iron deficiency anemia, unspecified; K90.89 Other intestinal malabsorption; K50.90 Crohn's disease, unspecified, without complications; E55.9 Vitamin D deficiency, unspecified; K74.1 Hepatic sclerosis; N19 Unspecified kidney failure; T56.894A Toxic effect of other metals, undetermined, initial encounter; Z68.44 Body mass index [BMI] 60.0-69.9, adult
CPT/HCPCS: 84255; 84134; 80061; 80053; 82607; 82728; 82525; 82746; 83540; 83550; 83735; 84100; 84443; 84590; 84630; 85027; 85610; 85730; 82306; 83970; 83036; 97803; G0463; 99211

== ENCOUNTER → 2023-03-22 | Outpatient (CLI) | payer MEDICARE, OTHER ==
[2023-03-22 17:13] LABS: INR 1.2 (<1.2); Partial Thromboplastin Time 29.1 sec (22.0-30.0); Prothrombin Time 12.3 sec (10.0-12.5)
[2023-03-23 00:03] LABS: % Iron Saturation 17.44 (15.00-50.00); Iron 71 UG/DL (65-175); Magnesium 1.9 mg/dL (1.5-2.4); Total Iron Binding Capacity 407 UG/DL (228-460)
[2023-03-23 00:10] LABS: ALT 27 U/L (10-49); AST 27 U/L (14-35); Albumin 4.2 g/dL (3.8-4.9); Alkaline Phosphatase 74 U/L (41-126); Blood Urea Nitrogen 8.3 mg/dL (9.0-27.0); Calcium 10.4 mg/dL (8.7-10.3); Carbon Dioxide 19.9 mmol/L (21.6-31.8); Chloride 103 mmol/L (96-109); Chol/HDL Ratio 4.15 Ratio; Glucose 116 mg/dL (70-110); LDL Cholesterol,Calculated 78.8 mg/dL (0.0-131.0); Potassium 4.9 mmol/L (3.5-5.5); Sodium 144 mmol/L (135-145); Total Bilirubin 0.7 mg/dL (0.3-1.2); Total Protein 7.2 g/dL (6.2-8.2)
[2023-03-23 02:54] LABS: HCT 43.4 % (39.6-50.0); HGB 13.9 g/dL (13.0-17.0); MCH 30.3 pg (27.0-32.0); MCV 94.8 FL (80.0-97.0); Mean Platelet Volume 10.1 FL (9.5-12.2); NRBC Per 100 WBC 0 X 10*3/uL (0.00-0.01); Platelet Count 254 X 10*3/uL (140-440); RBC 4.58 X 10*6/uL (4.40-5.60); RDW 14.6 % (11.5-14.5); WBC 9.44 X 10*3/uL (4.50-10.00)
[2023-03-23 10:30] LABS: Zinc, Serum 70 ug/dL (60-130)
[2023-03-24 08:42] LABS: Vitamin A 45 ug/dL (38-106)
[2023-03-24 09:14] LABS: Vit B1(Thiamine) 104 ug/L (38-122)
== END | disposition home or self-care (01) ==
LOC: LABWHC1 15:19
PROVIDERS: ATTEND Surgery Plastic and Reconstructive Surgery
DX: E66.01 Morbid (severe) obesity due to excess calories (principal); E89.1 Postprocedural hypoinsulinemia; D50.8 Other iron deficiency anemias; K91.2 Postsurgical malabsorption, not elsewhere classified; E44.0 Moderate protein-calorie malnutrition; E45 Retarded development following protein-calorie malnutrition; E46 Unspecified protein-calorie malnutrition; E55.9 Vitamin D deficiency, unspecified; K74.1 Hepatic sclerosis; N19 Unspecified kidney failure; T56.894A Toxic effect of other metals, undetermined, initial encounter; K50.90 Crohn's disease, unspecified, without complications
CPT/HCPCS: 36415; 80053; 80061; 82306; 82525; 82607; 82728; 82746; 83036; 83540; 83550; 83735; 83970; 84100; 84134; 84255; 84425; 84443; 84590; 84630; 85027; 85610; 85730

== ENCOUNTER → 2023-06-21 | Outpatient (CLI) | payer MEDICARE, OTHER ==
[2023-06-21 14:48] VITALS: BP 124/76; PULSE 81; TEMP 97.6; BMI 55.0
--- NOTE | 2023-06-21 14:48 | P.BASOAP ---
Subjective Progress Note Date: 06/21/23 He had impacted stool. He had narcotics. He had OIC. He is off all narcotics. He had severe constipation. May need lactulose. He is on new narcotics. He has left hip now right problem. He is under 400 pounds. He has swim class twice per week. Needs 100 grams. Needs labs. Objective - Vital Signs Vital signs: Vital Signs Temp 97.6 F 06/21/23 14:10 Pulse 81 06/21/23 14:10 Resp BP 124/76 06/21/23 14:10 Pulse Ox FiO2 Intake & Output 06/20/23 06/21/23 06/21/23 18:59 06:59 18:59 Weight 179.169 kg Assessment/Plan Plan: Date: 06/21/23 Initial Weight: Initial BMI: Current Weight: 179.169 kg Current BMI: 55.0 Type of Surgery: Total Volume in Band: Previous Volume: Volume Removed: Volume Added: Band Size:
[2023-06-21 16:54] LABS: INR 1.1 (<1.2); Partial Thromboplastin Time 24.1 sec (22.0-30.0); Prothrombin Time 11.5 sec (10.0-12.5)
[2023-06-22 03:47] LABS: HCT 47.7 % (39.6-50.0); HGB 15.6 g/dL (13.0-17.0); MCH 31.5 pg (27.0-32.0); MCHC 32.7 g/dL (32.0-37.0); MCV 96.2 FL (80.0-97.0); Mean Platelet Volume 10.9 FL (9.5-12.2); NRBC Per 100 WBC 0 X 10*3/uL (0.00-0.01); Platelet Count 252 X 10*3/uL (140-440); RBC 4.96 X 10*6/uL (4.40-5.60); RDW 13.5 % (11.5-14.5); WBC 11.71 X 10*3/uL (4.50-10.00)
[2023-06-22 03:51] LABS: Prealbumin 18.3 mg/dL (18.0-42.0)
[2023-06-22 04:07] LABS: % Iron Saturation 17.78 (15.00-50.00); ALT 13 U/L (10-49); AST 16 U/L (14-35); Albumin 4.1 g/dL (3.8-4.9); Albumin/Globulin Ratio 1.32 Ratio (1.60-3.17); Alkaline Phosphatase 77 U/L (41-126); BUN/Creat Ratio 12.33 Ratio (12.00-20.00); Blood Urea Nitrogen 11.1 mg/dL (9.0-27.0); Calcium 10.1 mg/dL (8.7-10.3); Carbon Dioxide 20.1 mmol/L (21.6-31.8); Chloride 102 mmol/L (96-109); Chol/HDL Ratio 4.27 Ratio; Globulin 3.1 g/dL (1.6-3.3); Glucose 96 mg/dL (70-110); Iron 72 UG/DL (65-175); LDL Cholesterol,Calculated 91.5 mg/dL (0.0-131.0); Magnesium 1.7 mg/dL (1.5-2.4); Phosphorus 3.4 mg/dL (2.4-5.1); Potassium 4.5 mmol/L (3.5-5.5); Sodium 138 mmol/L (135-145); Total Bilirubin 0.6 mg/dL (0.3-1.2); Total Iron Binding Capacity 405 UG/DL (228-460); Total Protein 7.2 g/dL (6.2-8.2)
[2023-06-22 12:53] LABS: Zinc, Serum 69 ug/dL (60-130)
[2023-06-23 06:11] LABS: Vitamin A 54 ug/dL (38-106)
[2023-06-23 06:26] LABS: Vit B1(Thiamine) 87 ug/L (38-122)
[2023-06-24 18:39] LABS: Selenium 139 mcg/L (63-160)
== END ==
LOC: BARWHC3 13:46
PROVIDERS: ATTEND Surgery Plastic and Reconstructive Surgery
DX: E66.01 Morbid (severe) obesity due to excess calories (principal); Z71.3 Dietary counseling and surveillance
CPT/HCPCS: 84255; 84134; 84425; 80061; 80053; 82607; 82728; 82525; 82746; 83540; 83550; 83735; 84100; 84443; 84590; 84630; 85027; 85610; 85730; 82306; 83970; 83036; 97803; G0463; 99211

== ENCOUNTER → 2023-09-20 | Outpatient (CLI) | payer MEDICARE, OTHER ==
[2023-09-20 14:31] VITALS: BP 106/69; PULSE 73; RESP 14; TEMP 98.1; BMI 50.9
--- NOTE | 2023-09-20 14:56 | P.BASOAP ---
Subjective Progress Note Date: 09/20/23 Has grade 4 panniculitis. He lost 110 pounds in under 1 year. He has difficulty grooming as he pants fall off. Cannot groom and activities of daily living. He has difficulty urinating and keeping skin dry between folds of skin. He has lower back pain and right hip pain with panniculitis. Highest 526 pounds. Pending to see crotch breaker for boils along pannus and pubis. Pannus over 50+ pounds. Regular doctor has sent him to [facility]. Nystatin. He wants to get down to 250 pounds. Objective - Vital Signs Vital signs: Vital Signs Temp 98.1 F 09/20/23 14:04 Pulse 73 09/20/23 14:04 Resp 14 09/20/23 14:04 BP 106/69 09/20/23 14:04 Pulse Ox FiO2 Intake & Output 09/19/23 09/20/23 09/20/23 18:59 06:59 18:59 Weight 165.561 kg Assessment/Plan Plan: Date: 09/20/23 Initial Weight: Initial BMI: Current Weight: 165.561 kg Current BMI: 50.9 Type of Surgery: Total Volume in Band: Previous Volume: Volume Removed: Volume Added: Band Size:
== END ==
LOC: BARWHC3 13:49
PROVIDERS: ATTEND Surgery Plastic and Reconstructive Surgery
DX: E66.01 Morbid (severe) obesity due to excess calories (principal); M79.3 Panniculitis, unspecified; M54.50 Low back pain, unspecified; M25.551 Pain in right hip; F17.290 Nicotine dependence, other tobacco product, uncomplicated; Z68.43 Body mass index [BMI] 50.0-59.9, adult; Z98.84 Bariatric surgery status; Z90.3 Acquired absence of stomach [part of]
CPT/HCPCS: 99211

== ENCOUNTER → 2024-03-13 | Outpatient (CLI) | payer MEDICARE, OTHER ==
[2024-03-13 15:56] VITALS: BP 122/75; PULSE 75; RESP 16; TEMP 98.1; BMI 54.3
--- NOTE | 2024-03-13 16:50 | P.BASOAP ---
Subjective Progress Note Date: 03/13/24 He is tearful for stable weight loss. He has not been able to get to 365 pounds. He is 390 pounds. He has large pannus over 35 pounds to 50 pounds. Objective - Vital Signs Vital signs: Vital Signs Temp 98.1 F 03/13/24 15:44 Pulse 75 03/13/24 15:44 Resp 16 03/13/24 15:44 BP 122/75 03/13/24 15:44 Pulse Ox FiO2 Intake & Output 03/12/24 03/13/24 03/13/24 18:59 06:59 18:59 Weight 176.901 kg Assessment/Plan Plan: Date: 03/13/24 Initial Weight: Initial BMI: Current Weight: 176.901 kg Current BMI: 54.3 Type of Surgery: Total Volume in Band: Previous Volume: Volume Removed: Volume Added: Band Size:
== END ==
LOC: BARWHC3 15:41
PROVIDERS: ATTEND Surgery Plastic and Reconstructive Surgery
DX: E66.01 Morbid (severe) obesity due to excess calories (principal); Z68.43 Body mass index [BMI] 50.0-59.9, adult
CPT/HCPCS: 99211